=== PATIENT | female | born 1975 | race African-American/Black ===

== ENCOUNTER 2019-02-13 19:43 | Emergency (ER) | payer SELFPAY ==
--- NOTE | 2019-02-13 21:41 | RAD ---
LEFT ANKLE THREE VIEWS: 02/13/19 HISTORY: Fall, left ankle pain. FINDINGS/IMPRESSION: Soft tissue swelling is present. The ankle mortise is maintained. No acute fracture or dislocation is identified. POS: [facility]
[2019-02-13] MEDS ORDERED: Acetaminophen 500 MG TAB ONE (21:46)
== END 2019-02-13 22:40 | disposition home or self-care (01) ==
LOC: ERS 19:43
DX: S93.402A Sprain of unspecified ligament of left ankle, initial encounter (principal); E11.9 Type 2 diabetes mellitus without complications; W10.9XXA Fall (on) (from) unspecified stairs and steps, initial encounter

== ENCOUNTER 2020-10-20 07:17 | Outpatient (CLI) | payer BC ==
[2020-10-21 06:31] LABS: SARS-CoV-2 MS2 Positive; SARS-CoV-2 N Gene Negative; SARS-CoV-2 S Gene Negative; SARS-CoV-2 by NAA Not Detected (NotDetected); SARS-CoV-2 orf1ab Negative
== END 2020-10-20 07:18 | disposition home or self-care (01) ==
LOC: LABBT 07:17
PROVIDERS: ATTEND Ophthalmology Retina Specialist
DX: Z01.812 Encounter for preprocedural laboratory examination (principal); H33.41 Traction detachment of retina, right eye; Z20.828 Contact with and (suspected) exposure to other viral communicable diseases
CPT/HCPCS: 87635; U0003

== ENCOUNTER 2020-10-23 07:49 | Day surgery (SDC) | payer BC ==
[2020-10-22 13:34] VITALS: BMI 16.5
[~2020-10-23 07:49] MED LIST: EPINEPHrine 0.3 MG, Dextrose 50% 3 ML in Ophthalmic Irrigation Solution 500 ML IRR SCH
[2020-10-23] MEDS ORDERED: Midazolam HCl 2 mg/2 ml Vial ONE (08:08)
[2020-10-23] MEDS ORDERED: Fentanyl 100 MCG/2 ML VIAL ONE (08:08)
[2020-10-23] MEDS ORDERED: Phenylephrine 2.5% Ophth Soln 5 ML BOT ONE (08:10)
[2020-10-23] MEDS ORDERED: Cyclopentolate HCl 1% 5 ML BOT ONE (08:11)
[2020-10-23] MEDS ORDERED: Lidocaine 4% PF 5 ML AMP ONE (11:57)
[2020-10-23] MEDS ORDERED: Maxitrol 0.1% Opth Oint 3.5 GM TUBE ONE (11:57)
[2020-10-23] MEDS ORDERED: Triamcinolone 40 MG/ML VIAL ONE (11:57)
[2020-10-23] MEDS ORDERED: Bupivacaine PF 0.75% SDV 10 ML ONE (11:57)
[2020-10-23] MEDS ORDERED: CEFAZOLIN 1 GM VIAL ONE (11:57)
[2020-10-23] MEDS ORDERED: Dextrose 50% Abboject 50 ML SYRINGE ONE (11:57)
[2020-10-23] MEDS ORDERED: Lidocaine 1% PF 5 ML VIAL ONE (11:57)
--- NOTE | 2020-10-23 18:08 | OP ---
DATE OF PROCEDURE: 10/23/2020 PREOPERATIVE DIAGNOSIS: Tractional retinal detachment, right eye. POSTOPERATIVE DIAGNOSIS: Tractional retinal detachment, right eye. PROCEDURE PERFORMED: Complex retinal detachment repair, right eye. ANESTHESIA: Local with monitored anesthesia care. DESCRIPTION OF PROCEDURE: The patient was identified in the preoperative holding area. Appropriate informed consent for the planned surgical procedure on the right eye had been obtained. The patient was transported to the operative suite. Appropriate cardiopulmonary monitoring was established. Local anesthesia was obtained using retrobulbar block. The patient was prepped and draped in usual sterile manner for ophthalmic surgery in the right eye. A lid speculum was placed in the right eye. A 25-gauge trocar was placed in the conjunctivae and sclerae superotemporally, inferotemporally, and supranasally. Infusion line was placed inferotemporally. Light pipe vitreous cutter was inserted into the eye. Core vitrectomy was performed. Some elevation of the posterior hyaloid face was noted over the macula, but was densely adherent into the retinal periphery especially superior and nasally. Extensive dissection of the vitreous base and epiretinal membranes was performed using light tight vitreous cutter and gripping forceps and scissors. Dissection was completed in its entirety over the retina except superonasal where retinotomy was created to relieve traction far anteriorly. Complete air-fluid exchange was performed. 10 minutes being left for fluid to drain posteriorly. Panretinal photocoagulation was placed into all non-macular areas of the retina. 28% sulfur hexafluoride gas was infused into the eye. Trocars were removed. Sclerotomy suture was closed with 6-0 plain gut suture. Retrobulbar Kenalog and subconjunctival Ancef were placed. Antibiotic ointment was placed. The eye was patched and shielded. The patient was taken to postoperative recovery unit in good condition, having suffered no immediate perioperative complications. The patient was instructed to keep patch and shied on, position in the right side down. Followup appointment in the morning with Dr. Zaldivar. Job ID: [id number]
== END 2020-10-23 11:35 | disposition home or self-care (01) ==
LOC: SDC 07:49
PROVIDERS: ATTEND Ophthalmology Retina Specialist
PROC: 08T43ZZ Resection of Right Vitreous, Percutaneous Approach (ICD-10-PCS; principal; 2020-10-23)
DX: H33.41 Traction detachment of retina, right eye (principal); E11.9 Type 2 diabetes mellitus without complications
CPT/HCPCS: 67025; J0171; J0690; J2001; J2250; J3010; J3301; J3490

== ENCOUNTER 2020-12-04 06:51 | Day surgery (SDC) | payer BC ==
[2020-12-02 16:37] VITALS: BMI 17.5
[~2020-12-04 06:51] MED LIST changes: +Cyclopentolate 1% Opth Drop 2 ML BOT FS SCH; -EPINEPHrine 0.3 MG, Dextrose 50% 3 ML in Ophthalmic Irrigation Solution 500 ML IRR SCH; +Fentanyl 100 MCG/2 ML VIAL ONE; +Fluorouracil 100 MG, EPINEPHrine 0.3 MG, Dextrose 50% 3 ML in Ophthalmic Irrigation Sol... IRR SCH; +Midazolam HCl 2 mg/2 ml Vial ONE; +Phenylephrine 2.5% Ophth Soln 5 ML BOT FS SCH
[2020-12-04] MEDS ORDERED: Cyclopentolate 1% Ophth Drops 15 ML BOT ONE (07:07)
[2020-12-04] MEDS ORDERED: Phenylephrine 2.5% Ophth Soln 5 ML BOT ONE (07:08)
[2020-12-04] MEDS ORDERED: Famotidine/PF 20 mg/2ml Vial ONE (08:10)
[2020-12-04] MEDS ORDERED: PHENYLEPHRINE-NS 100 MCG/ML 10 ML SYRINGE ONE (09:22)
[2020-12-04] MEDS ORDERED: Ondansetron PF 4 MG/2 ML Vial ONE (09:22)
[2020-12-04] MEDS ORDERED: Metoclopramide HCl 10 MG/2 ML VIAL ONE (09:22)
[2020-12-04] MEDS ORDERED: Triamcinolone 40 MG/ML VIAL ONE (09:22)
[2020-12-04] MEDS ORDERED: CEFAZOLIN 1 GM VIAL ONE (09:22)
[2020-12-04] MEDS ORDERED: Lidocaine 1% PF 5 ML VIAL ONE ×2 (09:22)
[2020-12-04] MEDS ORDERED: Bupivacaine PF 0.75% SDV 10 ML ONE (09:22)
[2020-12-04] MEDS ORDERED: Maxitrol 0.1% Opth Oint 3.5 GM TUBE ONE (09:22)
[2020-12-04] MEDS ORDERED: PROPOFOL 200 MG/20 ML VIAL ONE (09:22)
[2020-12-04] MEDS ORDERED: Lidocaine 4% PF 5 ML AMP ONE (09:22)
[2020-12-04] MEDS ORDERED: Labetalol HCl 100 MG/20 ML VIAL ONE (10:07)
== END 2020-12-04 11:15 | disposition home or self-care (01) ==
LOC: SDC 06:51
PROVIDERS: ATTEND Ophthalmology Retina Specialist
PROC: 08T43ZZ Resection of Right Vitreous, Percutaneous Approach (ICD-10-PCS; principal; 2020-12-04)
DX: H33.41 Traction detachment of retina, right eye (principal); E11.9 Type 2 diabetes mellitus without complications; E89.0 Postprocedural hypothyroidism; Z79.4 Long term (current) use of insulin; Z79.899 Other long term (current) drug therapy
CPT/HCPCS: 36416; C1814; J0171; J0690; J2250; J2405; J2704; J2765; J3010; J3301; J3490; J9190; S0028

== ENCOUNTER 2021-09-07 17:15 | Outpatient (CLI) | payer BC ==
[2020-12-02 02:56] LABS: SARS-CoV-2 PCR by NAA Not Detected (NotDetected)
[2021-09-08 00:09] LABS: SARS-CoV-2 PCR by NAA Not Detected (NotDetected)
== END 2021-09-07 17:16 | disposition home or self-care (01) ==
LOC: LABBT 17:15
PROVIDERS: ATTEND Ophthalmology Retina Specialist
DX: Z01.812 Encounter for preprocedural laboratory examination (principal); H43.391 Other vitreous opacities, right eye; Z20.822 Contact with and (suspected) exposure to COVID-19
CPT/HCPCS: U0003; U0005

== ENCOUNTER 2021-09-10 06:38 | Day surgery (SDC) | payer BC ==
[2021-09-09 12:21] VITALS: BMI 17.5
[~2021-09-10 06:38] MED LIST changes: -Cyclopentolate 1% Opth Drop 2 ML BOT FS SCH; -Fluorouracil 100 MG, EPINEPHrine 0.3 MG, Dextrose 50% 3 ML in Ophthalmic Irrigation Sol... IRR SCH; +Fluorouracil 100 MG, Enoxaparin Sodium 25 MG, EPINEPHrine 0.3 MG, Dextrose 50% 3 ML in ... IRR SCH; +PROPOFOL 20 ML ONE; -Phenylephrine 2.5% Ophth Soln 5 ML BOT FS SCH
[2021-09-10] MEDS ORDERED: Phenylephrine 2.5% Ophth Soln 5 ML BOT ONE (06:51)
[2021-09-10] MEDS ORDERED: Cyclopentolate 1% Opth Drop 2 ML BOT ONE (06:51)
[2021-09-10] MEDS ORDERED: Insulin Regular 300 UNITS/3 ML VIAL ONE (07:26)
[2021-09-10] MEDS ORDERED: Famotidine/PF 20 mg/2ml Vial ONE (07:59)
[2021-09-10] MEDS ORDERED: Bupivacaine PF 0.75% SDV 10 ML ONE (08:08)
[2021-09-10] MEDS ORDERED: PHENYLEPHRINE-NS 100 MCG/ML 10 ML SYRINGE ONE (08:08)
[2021-09-10] MEDS ORDERED: Triamcinolone 40 MG/ML VIAL ONE (08:08)
[2021-09-10] MEDS ORDERED: PROPOFOL 200 MG/20 ML VIAL ONE (08:08)
[2021-09-10] MEDS ORDERED: Lidocaine 1% PF 5 ML VIAL ONE ×2 (08:08)
[2021-09-10] MEDS ORDERED: Dextrose 50% Abboject 50 ML SYRINGE ONE (08:08)
[2021-09-10] MEDS ORDERED: Enoxaparin Sodium 30 MG/0.3 ML SYRINGE ONE (08:08)
[2021-09-10] MEDS ORDERED: ePHEDrine 50 MG/ML VIAL ONE (08:08)
[2021-09-10] MEDS ORDERED: Maxitrol 0.1% Opth Oint 3.5 GM TUBE ONE (08:08)
[2021-09-10] MEDS ORDERED: Metoclopramide HCl 10 MG/2 ML VIAL ONE (08:08)
[2021-09-10] MEDS ORDERED: Lidocaine 4% PF 5 ML AMP ONE (08:08)
[2021-09-10] MEDS ORDERED: CEFAZOLIN 1 GM VIAL ONE (08:08)
[2021-09-10] MEDS ORDERED: Ondansetron PF 4 MG/2 ML Vial ONE (08:08)
== END 2021-09-10 10:30 | disposition home or self-care (01) ==
LOC: SDC 06:38
PROVIDERS: ATTEND Ophthalmology Retina Specialist
PROC: 08NE3ZZ Release Right Retina, Percutaneous Approach (ICD-10-PCS; principal; 2021-09-10)
PROC: 08T43ZZ Resection of Right Vitreous, Percutaneous Approach (ICD-10-PCS; principal; 2021-09-10)
DX: H43.391 Other vitreous opacities, right eye (principal); H35.371 Puckering of macula, right eye; E11.9 Type 2 diabetes mellitus without complications; E89.0 Postprocedural hypothyroidism; Z79.4 Long term (current) use of insulin; Z79.899 Other long term (current) drug therapy
CPT/HCPCS: 36416; J0171; J0690; J1650; J1815; J2250; J2405; J2704; J2765; J3010; J3301; J3490; J9190; S0028